=== PATIENT | female | born 1950 | race Caucasian/White ===

== ENCOUNTER → 2016-08-20 | Outpatient (CLI) | payer MEDICARE ==
[~2016-08-20] MED LIST: COD1CAPS16 PO; HYDR-3702 PO; LVF500T PO; MULT-955 PO; OMG1KC PO; ONDAN4ODT PO; TAMS-8 PO; VIT1CAPS16 PO; VIT1CAPS44 PO; cholesterol PO
[2016-08-20 10:57] LABS: BASOPHILS % (AUTO) 1 % (0-2); EOSINOPHILS # (AUTO) 0.2 10^3uL; EOSINOPHILS % (AUTO) 3 % (0-4); LYMPHOCYTES # (AUTO) 1.5 X10^3; MEAN CORPUSCULAR HEMOGLOBIN 28.7 PG (26.0-34.0); MEAN CORPUSCULAR HGB CONC 33.3 g/dL (31.0-37.0); MEAN CORPUSCULAR VOLUME 86 FL (80-100); MEAN PLATELET VOLUME 10.1 FL (6.0-9.5); MONOCYTES # (AUTO) 0.6 X10^3; MONOCYTES % (AUTO) 9 % (3-11); NEUTROPHILS # (AUTO) 4.4 X10^3; NEUTROPHILS % (AUTO) 66 % (51-67); PLATELET COUNT 301 10^3uL (150-450); WHITE BLOOD COUNT 6.79 10^3uL (4.0-11.0)
[2016-08-20 11:11] LABS: BILIRUBIN,URINE Negative (Negative); CLARITY,URINE Clear; COLOR,URINE Yellow; GLUCOSE, URINE (UA) Negative (Negative); LEUKOCYTE ESTERASE ,URINE Negative (Negative); PH,URINE 5.5 (5.0 - 8.0); UROBILINOGEN,URINE 0.2 mg/dL (0.2-1.0)
[2016-08-20 11:24] LABS: ALBUMIN 4.6 g/dL (3.4-5.0); ANION GAP 16.2 MEQ/L (3-15); CALCULATED IONIZED CALCIUM 4.1 mg/dL (3.8-4.6); TOTAL PROTEIN 7.9 g/dL (6.4-8.5)
--- NOTE | 2016-08-20 12:19 | Diagnostic Imaging Report ---
EXAMINATION: CHEST (PA AND LATERAL) CLINICAL INDICATION: 65-year-old female, dyspnea. COMPARISON: September 08, 2015. FINDINGS: Stable overall appearance of the cardiomediastinal silhouette. There is no identified pneumothorax. There is no pleural effusion. There is no identified focal airspace consolidation. There are multilevel mild disc degenerative changes of the thoracic spine. IMPRESSION: No identified acute cardiopulmonary abnormality. Dictated by: Dictated on workstation # [id number]
== END ==
LOC: LAB 10:40
PROVIDERS: ATTEND Family Medicine
DX: I49.8 Other specified cardiac arrhythmias (principal); R06.00 Dyspnea, unspecified; R79.89 Other specified abnormal findings of blood chemistry; E78.2 Mixed hyperlipidemia; D50.8 Other iron deficiency anemias; N39.0 Urinary tract infection, site not specified; E13.65 Other specified diabetes mellitus with hyperglycemia; E03.4 Atrophy of thyroid (acquired); M81.0 Age-related osteoporosis without current pathological fracture
CPT/HCPCS: 36415; 71020; 80053; 80061; 81003; 82306; 83036; 84436; 84443; 85025; 93005